=== PATIENT | male | born 1980 | race Caucasian/White ===

== ENCOUNTER 2018-01-23 07:30 | Emergency (ER) | payer OTHER ==
[~2018-01-23] VITALS: Ht 185.4 cm; Wt 89.8 kg
[~2018-01-23 07:30] MED LIST: Ativan0.5 MG PO; CLON1 PO; Cyclobenzaprine5 MG PO; IBUP800 PO
[2018-01-23] MEDS ORDERED: CLON1 (07:44)
[2018-01-23] MEDS ORDERED: PROP10 (07:44)
[2018-01-23] MEDS ORDERED: Omeprazole20 M1 (07:44)
[2018-01-23] MEDS ORDERED: METCAR500 PO (08:49)
[2018-01-23] MEDS ORDERED: Inderal 20 mg T20 MG PO (08:49)
== END 2018-01-23 09:00 | disposition home or self-care (01) ==
LOC: ER 07:30
DX: M54.6 Pain in thoracic spine (principal); Z88.8 Allergy status to other drugs, medicaments and biological substances; Z79.899 Other long term (current) drug therapy
CPT/HCPCS: 99282